=== PATIENT | male | born 2000 | race Caucasian/White ===

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

== ENCOUNTER 2022-05-07 11:03 | Emergency (ER) | payer OTHER, SELFPAY ==
--- NOTE | 2022-05-07 11:08 | ED.WOUNDLAC ---
HPI - Wound/Laceration General Chief Complaint: Skin/Abscess/Foreign Body Stated Complaint: right hand lac Time Seen by Provider: 05/07/22 11:21 Source: patient and RN notes reviewed Mode of arrival: ambulatory Limitations: no limitations History of Present Illness HPI narrative: 21-year-old male presents with concern for laceration to the dorsal aspect of his right hand. He reports just prior to arrival he cut the hand on a ceiling fan base. He denies decreased sensation, strength, range of motion in the digits or hand. He reports his last tetanus vaccination was in high school. Related Data Home Medications Medication Instructions Recorded Confirmed No Home Medications 10/11/21 10/11/21 Allergies Allergy/AdvReac Type Severity Reaction Status Date / Time No Known Allergies Allergy Verified 05/07/22 11:19 Review of Systems Review of Systems: CONSTITUTIONAL: Denies malaise, chills, sweats, or fever. EYES: Denies redness, or discharge. ENT: Denies rhinorrhea, congestion, swollen lips, swollen tongue CARDIOVASCULAR: Denies chest pain, palpitations, or edema. RESPIRATORY: Denies cough or dyspnea. GASTROINTESTINAL: Denies abdominal pain, nausea, vomiting SKIN: Reports laceration of the dorsal aspect of the right hand MUSCULOSKELETAL: Denies joint pain or myalgia. Denies decreased sensation, strength, range of motion of the hand or digits NEUROLOGIC: Denies headache. All systems reviewed & are unremarkable except as noted in HPI and below PMFSH Comments At time of signature, agree with nursing past medical, surgical, social and family history. There is no relevant family history pertinent to the presenting complaint Exam Narrative: GENERAL: Well-appearing, well-nourished, and in no acute distress. HEAD: Normocephalic EYES: PERRLA, conjunctivae clear NECK: Supple. CHEST: Speaks in full sentences. No respiratory distress. HEART: Regular rate and rhythm. Normal and equal peripheral pulses. EXTREMITIES: Right hand and digits of hand have normal strength and sensation. 5/5 strength with digit flexion, extension. Range of motion normal. No clubbing, cyanosis, or edema noted. No tenderness. Normal digital cascade with flexion of fingers, median, ulnar and radial nerve intact. Normal sensation of each side of finger. Can perform 'okay' sign, 'cross over finger test of index and middle fingers' and 'thumbs up' sign. No scissoring. Normal thumb opposition. Good capillary refill and radial pulse. Distal capillary refill less than 3 seconds. Patient is right/left hand dominant SKIN: Warn, dry, intact, pink. 2cm linear laceration through the subcutaneous tissue noted to the dorsal aspect of the right hand, no suspected ligament or tendon involvement NEURO: Alert and oriented x3. PSYCH: Normal mood and affect Course Course Emergency Course: Patient is aware of diagnosis, understands and agrees to treatment plan. Anticipatory guidance given. Patient agrees to follow-up as directed and is aware of reasons to seek care at the emergency department. Portions of this record may have been created with voice recognition software Level of Care: Express Care Visit Vital Signs Vital signs: Reviewed. Procedures Laceration Laceration 1: Date: 05/07/22 Time: 11:15 Site: hand Side (If applicable): right Size (cm): 2 Description: linear Depth: simple, single layer Pre-repair: wound explored and irrigated extensively ====== Skin Level ====== Skin layer closed with: dermabond ====== Subcutaneous Layer ====== ====== Muscle Layer ====== ====== Tendon Layer ====== MDM - Wound/Laceration MDM Narrative Medical decision making narrative: Wound explored for foreign body and copious irrigation provided with no evidence of FB. Discussed the potential of retained foreign body with the patient and signs/symptoms that should prompt the patient to immediately go
[2022-05-07 11:12] VITALS: BP 123/59; PULSE 86; RESP 16; TEMP 36.8; O2SAT 100
== END 2022-05-07 11:40 | disposition home or self-care (01) ==
PROVIDERS: Emergency Provider Nurse Practitioner; PCP Anesthesiology
DX: S61.411A Laceration without foreign body of right hand, initial encounter (principal); W45.8XXA Other foreign body or object entering through skin, initial encounter
CPT/HCPCS: 12001; 99212; G0463